=== PATIENT | female | born 1985 | race American Indian/Alaskan Native ===

== ENCOUNTER 2017-02-18 21:54 | Emergency (ER) | payer MEDICAID ==
[2017-02-18 22:20] VITALS: BP 148/99; PULSE 86; RESP 18; TEMP 98.8; O2SAT 100
--- NOTE | 2017-02-19 00:19 | US ---
EXAM: US First Trimester, Transabdominal CLINICAL HISTORY: 31 years old, female; Signs and symptoms; Lmp or gestational age (in weeks): 11/18/2016; Other: Llq pain; ; Additional info: Vaginal bleeding, cramping heavy TECHNIQUE: Real-time transabdominal obstetrical ultrasound of the maternal pelvis and a first trimester with image documentation. COMPARISON: There are no prior studies for comparison. FINDINGS: Limitation: Incomplete bladder distention and body habitus limited transabdominal imaging Uterus: Uterus measures approximately 10.6 x 5.5 x 7.3 cm. There is irregularly shaped sac in the endometrium. Adnexa: Neither ovary could be identified IMPRESSION: Limited transabdominal examination, irregular gestational sac in the uterus EXAM: US , Transvaginal CLINICAL HISTORY: 31 years old, female; Signs and symptoms; Lmp or gestational age (in weeks): 11/18/2016, 13 weeks 1 day by dates the; Other: Llq pain; ; Additional info: Vaginal bleeding, cramping heavy TECHNIQUE: Real-time transvaginal obstetrical ultrasound of the maternal pelvis and a first trimester with image documentation. Transvaginal imaging was used for better evaluation of the fetus and adnexa. EXAM DATE/TIME: 02/18/2017 10:45 PM COMPARISON: There are no prior studies for comparison. FINDINGS: There is irregularly shaped sac in the endometrium.Gestational sac has mean diameter 17.1 mm. There is debris in the sac suggesting blood. A pole is not identified. A yolk sac is not identified. Left ovary: Left ovary measures approximately 2.66 x 1.80 x 1.90 cm.There are multiple small follicles.There is expected blood flow on Doppler imaging Right ovary: Right ovary measures approximately 3.04 x 2.80 x 2.32 cm. There is a 2 x 1.5 x 1.8 cm dominant follicle/cyst. There is expected blood flow on Doppler imaging IMPRESSION: Abnormal gestational sac appears to contain blood, no yolk sac or pole findings suggest incomplete Correlation with serial beta hCG levels advised
--- NOTE | 2017-02-19 00:22 | ED PDOC ---
HPI: Female Pain Time Seen by Provider: 02/18/17 22:22 Chief Complaint (Nursing): Female Genitourinary Chief Complaint (Provider): Vaginal Spotting History Per: Patient History/Exam Limitations: no limitations Current Symptoms Are (Timing): Still Present Severity: Moderate Quality Of Discomfort: "Pain" Additional Complaint(s): Claudia Delacruz is a 31 y/o female, with a past medical history of G-3;P-2;A-0, presenting to the ER on 02/19/2017 after being referred from her PMD for vaginal spotting. Patient, who is supposed to be twelve weeks , reports having an unsuccessful attempt to terminate her on 02/16 after being administered 850 mg of Misoprostol by her OB. In addition, she reports having a blighted ovum after having a trans-abdominal ultrasound performed a couple of days ago. With concern for demise, her PMD referred her to the ER today for a DNC. Upon arrival, she states having episodes of vaginal spotting associated with suprapubic pain but denies any clots. PMD- Stacey Cabezas Past Medical History Reviewed: Historical Data, Nursing Documentation, Vital Signs Vital Signs: Last Vital Signs Temp 98.8 F 02/18/17 22:16 Pulse 86 02/18/17 22:16 Resp 18 02/18/17 22:16 BP 148/99 H 02/18/17 22:16 Pulse Ox 100 02/18/17 22:16 - Medical History PMH: No Chronic Diseases - Surgical History Surgical History: - Family History Family History: States: Unknown Family Hx - Social History Current smoker - smoking cessation education provided: No Alcohol: None Drugs: Denies - Allergies Allergies/Adverse Reactions: Allergies Allergy/AdvReac Type Severity Reaction Status Date / Time No Known Allergies Allergy Verified 02/18/17 22:15 Review of Systems ROS Statement: Except As Marked, All Systems Reviewed And Found Negative Gastrointestinal: Positive for: Abdominal Pain (suprapubic ) Genitourinary Female: Positive for: Other (vaginal spotting ) Physical Exam - Reviewed Nursing Documentation Reviewed: Yes Vital Signs Reviewed: Yes - Physical Exam Appears: Positive for: Non-toxic, No Acute Distress Head Exam: Positive for: ATRAUMATIC, NORMOCEPHALIC Skin: Positive for: Normal Color, Warm, Dry Eye Exam: Positive for: Normal appearance, EOMI, PERRL Neck: Positive for: Normal, Painless ROM, Supple Cardiovascular/Chest: Positive for: Regular Rate, Rhythm. Negative for: Murmur Respiratory: Positive for: Normal Breath Sounds. Negative for: Wheezing, Respiratory Distress Gastrointestinal/Abdominal: Positive for: Tenderness ((+) mild, suprapubic ) Extremity: Positive for: Normal ROM. Negative for: Deformity Neurologic/Psych: Positive for: Alert, Oriented. Negative for: Motor/Sensory Deficits - ECG O2 Sat by Pulse Oximetry: 100 Medical Decision Making Medical Decision Makin:22 Initial Impression- demise vs. (less likely but needs to be considered) Ectopic Initial Plan- * Type and Screen * US OB Transvaginal * Re-assess 00:27 US OB TRANSVAGINAL FINDINGS: There is irregularly shaped sac in the endometrium.Gestational sac has mean diameter 17.1 mm. There is debris in the sac suggesting blood. A pole is not identified. A yolk sac is not identified. Left ovary: Left ovary measures approximately 2.66 x 1.80 x 1.90 cm.There are multiple small follicles.There is expected blood flow on Doppler imaging Right ovary: Right ovary measures approximately 3.04 x 2.80 x 2.32 cm. There is a 2 x 1.5 x 1.8 cm dominant follicle/cyst. There is expected blood flow on Doppler imaging. IMPRESSION: Abnormal gestational sac appears to contain blood, no yolk sac or pole findings suggest incomplete Correlation with serial beta hCG levels advised [address] Garcia who reviewed the case and US, There are no indications for emergent D and C. Impression is missed . Recommends to follow up with her OBGYN. Documented by Elver Delgado, acting as a scribe for Jorge Rachel MD. All medical record entries made by the Scribe were at my direction and personally dictated by me. I have reviewed the chart and agree that the record accurately reflects my personal performance of the history, physical exam, medical decision making, and the department course for this patient. I have also personally directed, reviewed, and agree with the discharge instructions and disposition. Disposition - Clinical Impression Clinical Impression: demise - Patient ED Disposition Is Patient to be Admitted: No Doctor Will See Patient In The: Office Counseled Patient/Family Regarding: Studies Performed, Diagnosis, Need For Followup - Disposition Referrals: [facility] [Outside] Disposition: Routine/Home Disposition Time: 03:24 Condition: GOOD Additional Instructions: Follow up with your [facility] within 1 week. Return for worsening to ER. Instructions: Threatened Miscarriage (ED)
== END 2017-02-19 03:36 | disposition home or self-care (01) ==
LOC: H.ER 21:54
DX: O20.0 Threatened abortion (principal); O02.0 Blighted ovum and nonhydatidiform mole; Z3A.12 12 weeks gestation of pregnancy

== ENCOUNTER 2017-02-27 08:30 | Day surgery (SDC) | payer MEDICAID ==
[2017-02-26 14:45] VITALS: BMI 27.3
[2017-02-27 09:34] LABS: HEMATOCRIT 34.2 % (34.0-47.0); MEAN CELL VOLUME 85.1 fl (81.0-99.0); MEAN CORPUSCULAR HEMOGLOBIN 28.1 pg (27.0-31.0); WHITE BLOOD COUNT 4.2 K/uL (4.8-10.8)
[2017-02-27] MEDS ORDERED: Lactated Ringer's 1,000 ML IV ONE ×2 (09:34→12:00)
[2017-02-27] MEDS ORDERED: Propofol 10 mg/ml Inj (20 ML) ONE (09:46)
[2017-02-27] MEDS ORDERED: Lidocaine Hydrochloride 5 ML INJ ONE (09:46)
[2017-02-27] MEDS ORDERED: Midazolam 2 MG/2 ML VIAL ONE (09:46)
[2017-02-27] MEDS ORDERED: HYDROmorphone 0.5 mg/0.5 ml ISec IVP PRN (12:03)
[2017-02-27] MEDS ORDERED: Lactated Ringer's 1,000 ML IV SCH (12:03)
[2017-02-27 12:12] VITALS: RESP 18
--- NOTE | 2017-02-27 12:15 | OP ---
PROCEDURE DATE: 02/27/2017 PREOPERATIVE DIAGNOSIS: Missed . POSTOPERATIVE DIAGNOSIS: Missed . OPERATION PERFORMED: Suction dilation and curretage. SURGEON: Barrie Irwin MD. ANESTHESIA: General, administered by Dr. Royal. ESTIMATED BLOOD LOSS: Minimal. The patient was straight cathed prior to starting the procedure. FLUIDS: The patient received approximately 200 mL of D5LR intraoperatively. OPERATIVE FINDINGS: Uterus 9-10 weeks' in size. Os was approximately 1 cm. Scant blood noted in th e vagina. No adnexal masses were noted. Normal external female genitalia. Normal urethra. DESCRIPTION OF PROCEDURE: After informed consent was obtained, the patient was taken to the operatin g room where she was given general anesthesia. She was placed in a dorsal lithotomy position. She w as then prepped and draped in the usual sterile fashion. A weighted speculum was inserted into the v agina. The cervix was visualized and grasped with a single-tooth tenaculum. The cervix was then gen tly dilated. A #9 suction curette was then introduced into the uterine cavity and rotated in a clock pope fashion. A sharp curettage was then performed until gritty texture was noted. The suction lianet ce was reintroduced into the uterine cavity to remove any remaining debris. All instruments were the n removed from the vagina. Hemostasis was noted. Sponge, lap, needle, and instrument counts were co rrect x 2 and the patient was awakened from general anesthesia and taken to the recovery room in awak e and stable condition. Lacey Irwin MD cc: [id number] TT: 02/27/2017 12:14:23 sc
[2017-02-27 13:34] VITALS: BP 132/95; PULSE 81; TEMP 98.4; O2SAT 98
== END 2017-02-27 13:40 | disposition home or self-care (01) ==
LOC: H.OPSURG 08:30
PROVIDERS: ATTEND Obstetrics & Gynecology Gynecology
DX: O02.1 Missed abortion (principal)